=== PATIENT | male | born 1980 | race African-American/Black ===

== ENCOUNTER 2017-02-01 00:09 | Emergency (ER) | payer MEDICAID ==
[~2017-02-01] VITALS: Ht 167.6 cm; Wt 74.0 kg
[2017-02-01] MEDS ORDERED: ONDANSETRON HCL 4MG/2ML VIAL IV STA (02:41)
[2017-02-01] MEDS ORDERED: MORPHINE SULFATE 4 MG/ML CPJ (NOT FOR IM USE) IV STA (02:41)
[2017-02-01] MEDS ORDERED: FAMOTIDINE 20MG/2ML VIAL IV STA (02:41)
[2017-02-01] MEDS ORDERED: SODIUM CHLORIDE 0.9% 1,000 ML IV ONE (02:41)
[2017-02-01 03:10] LABS: BASOPHILS % 0.2 % (0.0-2.0); EOSINOPHILS % 1.1 % (0.0-5.0); HEMATOCRIT. 42.3 % (42.0-52.0); HEMOGLOBIN. 14.2 g/dL (14.0-18.0); LYMPHOCYTES % 8.9 % (20.0-50.0); MEAN CORPUSCULAR HEMOGLOBIN 27.1 pg (28.0-32.0); MEAN CORPUSCULAR VOLUME 80.8 fL (80.0-94.0); MEAN PLATELET VOLUME 7.6 fl (7.4-10.4); NEUTROPHILS % 82.8 % (40.0-76.0); PLATELET 305 x1000/uL (130-400); RED BLOOD CELL COUNT 5.23 mill/uL (4.7-6.1); RED CELL DISTRIBUTION WIDTH 13.5 % (11.6-14.6)
[2017-02-01 03:13] LABS: CHLORIDE 107 mEq/L (98-107)
[2017-02-01 03:16] LABS: PARTIAL THROMBOPLASTIN TIME 29.8 sec (23.4-31.0); PROTHROMBIN TIME 10.7 sec (9.4-11.6)
[2017-02-01 03:21] LABS: CARBON DIOXIDE 29 mEq/L (21-32)
[2017-02-01 07:16] VITALS: BP 133/84
== END 2017-02-01 07:17 | disposition home or self-care (01) ==
LOC: ER 00:09
DX: K52.9 Noninfective gastroenteritis and colitis, unspecified (principal); F17.200 Nicotine dependence, unspecified, uncomplicated; K50.911 Crohn's disease, unspecified, with rectal bleeding; Z88.0 Allergy status to penicillin
CPT/HCPCS: 36415; 80053; 83690; 85025; 85610; 85730; 86850; 86900; 86901; 96361; 96374; 96375; 99284; J2270; J2405; J3490; J7030; Z7610